=== PATIENT | female | born 1955 | race American Indian/Alaskan Native ===

== ENCOUNTER 2016-12-12 15:06 | Outpatient (CLI) | payer BC | END 2016-12-12 23:01 | disposition home or self-care (01) | LOC: RAD 15:06 | DX: M79.671 Pain in right foot (principal) ==

== ENCOUNTER 2022-10-17 08:50 | Outpatient (CLI) | payer OTHER | END 2022-10-17 20:10 | disposition home or self-care (01) | LOC: RESP 08:50 | PROVIDERS: ATTEND Specialist | DX: I10 Essential (primary) hypertension (principal); I25.10 Atherosclerotic heart disease of native coronary artery without angina pectoris; E78.49 Other hyperlipidemia ==

== ENCOUNTER 2022-10-24 08:52 | Outpatient (CLI) | payer OTHER ==
[~2022-10-24] VITALS: Ht 162.6 cm; Wt 119.7 kg
== END 2022-10-24 20:57 | disposition home or self-care (01) ==
LOC: NM 08:52
PROVIDERS: ATTEND Specialist
DX: I10 Essential (primary) hypertension (principal); I25.10 Atherosclerotic heart disease of native coronary artery without angina pectoris; E78.49 Other hyperlipidemia
CPT/HCPCS: A9500; J2785